=== PATIENT | female | born 1995 | race American Indian/Alaskan Native ===

== ENCOUNTER 2021-05-07 19:30 | Emergency (ER) | payer SELFPAY | END 2021-05-07 20:15 | disposition left against medical advice (07) | LOC: ED 19:30 ==

== ENCOUNTER 2021-05-09 10:27 | Emergency (ER) | payer OTHER ==
[2021-05-09] MEDS ORDERED: ACETAMINOPHEN 500 MG TAB PO STA (11:48)
[2021-05-09] MEDS ORDERED: IBUPROFEN 800 MG TAB PO STA (11:48)
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
[2021-05-09 12:45] VITALS: BP 101/51
== END 2021-05-09 12:45 | disposition home or self-care (01) ==
LOC: ED 10:27
DX: M54.2 Cervicalgia (principal); M54.9 Dorsalgia, unspecified; J45.909 Unspecified asthma, uncomplicated; Z79.899 Other long term (current) drug therapy; V49.49XA Driver injured in collision with other motor vehicles in traffic accident, initial encounter; Y92.410 Unspecified street and highway as the place of occurrence of the external cause; Y93.89 Activity, other specified; Y99.8 Other external cause status
CPT/HCPCS: 99282